=== PATIENT | male | born 1975 | race Two or more races ===

== ENCOUNTER 2017-07-19 07:04 | Emergency (ER) | payer OTHER ==
[2017-07-19 07:52] VITALS: RESP 16
[2017-07-19] MEDS ORDERED: ONDANSETRON HCL 4 MG/2 ML SOL IV ONE (08:04)
[2017-07-19] MEDS ORDERED: SODIUM CHLORIDE 0.9% FLUSH 10 ML SOL IV PRN (08:04)
[2017-07-19] MEDS ORDERED: PANTOPRAZOLE SODIUM 40 MG/10 ML PDS IV ONE (08:05)
[2017-07-19] MEDS ORDERED: SODIUM CHLORIDE 0.9% 1000ML 1,000 ML IV SCH (08:15)
[2017-07-19] MEDS ORDERED: ONDANSETRON HCL 4 MG/2 ML SOL ONE (08:15)
[2017-07-19] MEDS ORDERED: PANTOPRAZOLE SODIUM 40 MG/10 ML PDS ONE (08:15)
[2017-07-19 08:16] LABS: BASOPHILS % (AUTO) 2 % (0-3); EOSINOPHILS % (AUTO) 0 % (0-9); HEMATOCRIT 45 % (39-53); HEMOGLOBIN 15.8 gm/dl (13.5-17.7); LYMPHOCYTES % (AUTO) 27.6 % (10-50); MEAN CORPUSCULAR HEMOGLOBIN 33.8 pg (27.0-32.0); MEAN CORPUSCULAR HGB CONC 35.1 gm/dl (32.0-36.0); MEAN CORPUSCULAR VOLUME 96 fL (80-100); MONOCYTES % (AUTO) 10.3 % (0-12); NEUTROPHILS % (AUTO) 59.9 % (37-80)
[2017-07-19 08:28] LABS: ALBUMIN 4.2 gm/dl (3.4-5.0); BILIRUBIN,TOTAL 0.4 mg/dl (0.2-1.0); CALCIUM 8.8 mg/dl (8.5-10.1); CARBON DIOXIDE 25.2 mEq/L (21-32); CREATININE 0.85 mg/dl (0.80-1.30); POTASSIUM 4.3 mMol/L (3.5-5.1); TOTAL PROTEIN 9.1 gm/dl (6.4-8.2)
[2017-07-19 09:08] VITALS: BP 143/91; PULSE 102; TEMP 97.4; O2SAT 99
[2017-07-19 09:18] LABS: APPEARANCE,URINE Clear; BILIRUBIN,URINE NEGATIVE (NEGATIVE); COLOR,URINE Yellow; GLUCOSE, URINE (UA) NEGATIVE (NEGATIVE); KETONES,URINE NEGATIVE (NEGATIVE); LEUKOCYTE ESTERASE ,URINE NEGATIVE (NEGATIVE); NITRATE,URINE NEGATIVE (NEGATIVE); OCCULT BLOOD,URINE NEGATIVE (NEG-TRACE); UROBILINOGEN,URINE 0.2 (0.2-1.0 EU)
[2017-07-19 09:30] LABS: RBC,URINE NEGATIVE (0-3AV/HPF)
[2017-07-19 09:31] LABS: BACTERIA 1+ (< 1+); CRYSTALS NEGATIVE (0-3 AVE/HPF); EPITHELIAL CELLS NEGATIVE (SQUAMOUS); WBC,URINE NEGATIVE (0-5AV/HPF)
== END 2017-07-19 10:24 | disposition home or self-care (01) | DRG 392 ==
LOC: ED 07:04
DX: R11.2 Nausea with vomiting, unspecified (principal); R10.13 Epigastric pain; K21.9 Gastro-esophageal reflux disease without esophagitis
CPT/HCPCS: 80053; 81001; 84484; 85025; 93005; 96365; 96374; 96375; 99283; 99284; 99285; J2405